=== PATIENT | male | born 1935 | race Caucasian/White ===

== ENCOUNTER → 2017-04-02 | Day surgery (SDC) | payer MEDICARE ==
[~2017-04-02] VITALS: Ht 167.6 cm; Wt 80.0 kg
[~2017-04-02] MED LIST: 0.9% Sodium Chloride 1,000 ML IV SCH; ASPI-973 PO; DESO15CR25 TOP; FUR20 PO; LOSA50TA37 PO; METO-386 PO; MOME13HF2 IH; PIME30CR TP; ROSU5TAB9 PO; Sodium Biphos-Phos 133 mL Enema RECTAL PRN; Sodium Chloride LOK Flush 10 mL Syringe IV PRN; TACR100O2 TP; TAMS0.4C29 PO; fentaNYL-PF 50 mCg/mL 2 mL Inj IVPUSH PRN
[2017-04-02 14:31] VITALS: BP 147/77; PULSE 86; RESP 16; O2SAT 97
[2017-04-02 16:02] VITALS: BP 111/57; PULSE 69; RESP 14; O2SAT 96
[2017-04-02 16:12] VITALS: BP 92/45; PULSE 57; O2SAT 94
[2017-04-02 16:24] VITALS: BP 106/47; PULSE 58; O2SAT 95
[2017-04-02 16:34] VITALS: BP 106/57; PULSE 57; O2SAT 95
--- NOTE | 2017-04-02 20:03 | ENDO ---
[address] [address] ENDOSCOPY PROCEDURE PATIENT: DHRUV BRUCE : 1935 MR#: [id number] ADMIT: 04/02/2017 JOB ID: [id number] PREPROCEDURE DIAGNOSIS: Change in bowel habits, personal history of colon polyps. POSTPROCEDURE DIAGNOSIS: Ascending colon polyps x4, sigmoid colon polyp, severe left-sided diverticulosis. PROCEDURE: Colonoscopy with biopsies. ENDOSCOPIST: Dr. Avtar Loco. MEDICATIONS: 1. Versed 7 mg. 2. Fentanyl 125 mcg. INDICATIONS: The patient is an 81-year-old man who was referred to Dr. David from Dr. Lowe for left groin pain and change in bowel habits. He states that he has gone from being very regular to having bowel movements once every three days or so. There has been no blood in his stool. He has not had any unplanned weight loss. After discussion of risks and benefits, he agreed to proceed with colonoscopy. Also note that he has a history of colon polyps removed approximately 15 years ago, and last colonoscopy was approximately 10 years ago. FINDINGS: There were four small polyps in the ascending colon near the hepatic flexure. There was a small polyp in the rectum. All were removed with cold forceps. There was severe left-sided diverticulosis with both large and small mouthed diverticula. DESCRIPTION OF PROCEDURE: Procedural sedation was achieved. The patient was connected to hemodynamic monitoring, pulse oximetry, capnography. After digital rectal exam, the PCF H 180 AL colonoscope was inserted and advanced under visualization. With some of the difficulty, the ileocecal valve and appendiceal orifice were visualized and photo documented. The scope was then withdrawn and carefully retroflexed in the rectum. There was a cluster of four small polyps at the hepatic flexure which were removed individually with cold forceps and sent for permanent pathology. There was a small polyp in the rectum which was removed with cold forceps and sent for permanent pathology. As above, there was extensive diverticulosis, mostly large-mouthed, involving the entire left colon. Retroflexion revealed no other abnormalities. The scope was withdrawn and the procedure terminated. He tolerated the entire procedure well. RECOMMENDATIONS: He needs to be on a high-fiber diet with a daily regimen. I suspect that his change of bowel habits is from his extensive diverticular disease. Biopsy results will be mailed to the patient and recommend that he likely needs another colonoscopy in five years.
--- NOTE | 2017-04-09 08:23 | PATH ---
SURGICAL PATHOLOGY Attending Physician:Robert Barcenas CASE STATUS: Signed Out PATIENT NAME: DHRUV BRUCE PID: [id number] : 1935 DATE COLLECTED:04/02/2017 00:00 SPECIMEN: 1: Colon, Polyp 2: Rectum, Biopsy CLINICAL HISTORY: 1). ASCENDING COLON POLYP X 4 2). RECTAL POLYP FINAL DIAGNOSIS: 1. Ascending Colon, Polyps x4, Biopsies: Multiple portions (approximately 7) of tubular adenoma; negative for high-grade dysplasia. Superficial portions of colorectal mucosa x2 with no diagnostic abnormality. 2. Rectum, Polyp, Biopsy: Portions of tubular adenoma x2; negative for high-grade dysplasia. Superficial portion of colorectal mucosa x1 with no diagnostic abnormality. ICD10: K63.5 GROSS DESCRIPTION: The specimen is received in two formalin filled containers labeled with the patient's name. 1). The specimen is labeled "ascending colon polyp" and consists of multiple portions of tissue which aggregate to 0.4 x 0.4 x 0.3 CM. The specimen is entirely submitted in cassette 1A. 2). The specimen is labeled "rectal polyp and "and consists of 3 portions of tissue which aggregate to 0.3 x 0.3 x 0.2 CM. The specimen is entirely submitted in cassette 2A. 04/04/2017DC ICD-9 CODES: CPT CODES: 1: 54347 2: 12841 Electronically Signed Out Kajal Wade MD [facility], [place] [address] Technical component performed at [facility], [address] [address] [address], [place], [address]
== END | disposition home or self-care (01) ==
LOC: END 00:44
PROVIDERS: ATTEND Student in an Organized Health Care Education/Training Program
DX: R19.4 Change in bowel habit (principal); D12.2 Benign neoplasm of ascending colon; D12.8 Benign neoplasm of rectum; K57.30 Diverticulosis of large intestine without perforation or abscess without bleeding; Z86.010 Personal history of colon polyps; I25.10 Atherosclerotic heart disease of native coronary artery without angina pectoris; J44.9 Chronic obstructive pulmonary disease, unspecified; I48.91 Unspecified atrial fibrillation; R00.0 Tachycardia, unspecified; E78.5 Hyperlipidemia, unspecified; I10 Essential (primary) hypertension; Z87.891 Personal history of nicotine dependence; Z95.0 Presence of cardiac pacemaker; Z79.82 Long term (current) use of aspirin
CPT/HCPCS: 45380; 99153; G0500; J2250; J3010; J7030